=== PATIENT | female | born 1960 | race Caucasian/White ===

== ENCOUNTER 2025-01-09 15:34 | Emergency (ER) | payer BC, OTHER ==
[~2025-01-09] VITALS: Ht 160 cm; Wt 52.2 kg
[~2025-01-09 15:34] MED LIST: CALCIUM; CITALOPRAM HBR20 MG PO; IMITREX100 MG PO; MULTI-VITAMIN1 EACH PO
[2025-01-09 17:25] LABS: BASOPHILS % 0.2 % (0.0-1.0); EOSINOPHILS % 0.0 % (0.0-6.0); LYMPHOCYTES % 2.4 % (18.0-39.1); MONOCYTES % 4.1 % (4.4-11.3); NEUTROPHILS % 92.7 % (38.7-80.0); RED CELL DISTRIBUTION WIDTH 12.0 % (11.7-14.4)
[2025-01-09 17:34] LABS: INR 0.91
[2025-01-09 17:38] LABS: EST GLOMERULAR FILTRATION RATE 90.0 ML/MIN (>=60)
[2025-01-09] MEDS: ONDANSETRON HCL INJ 2MG/ML 2ML 2 MG/ML VIAL IV STA (17:45)
[2025-01-09] MEDS: SODIUM CHLORIDE 0.9% 1000ML 1,000 ML IV STA (17:45)
[2025-01-09 19:28] LABS: LEUKOCYTE ESTERASE ,URINE NEGATIVE (NEGATIVE); PROTEIN,URINE DIPSTICK 1+ (NEGATIVE); URINE UROBILINOGEN 0.2 mg/dL (0.2 - 1)
[2025-01-09] MEDS: SODIUM CHLORIDE 0.9% 1000ML 1,000 ML IV ONE (19:39)
[2025-01-09] MEDS: MECLIZINE HCL 12.5 MG TAB PO ONE (19:42)
[2025-01-09] MEDS: ACETAMIN/BUTALBITAL/CAFFEINE TAB PO ONE (19:42)
[2025-01-09] MEDS: DIPHENHYDRAMINE HCL INJ 50 MG/ML VIAL IV ONE (19:46)
[2025-01-09] MEDS: METOCLOPRAMIDE HCL 10 MG/2ML VIAL IV ONE (19:46)
[2025-01-09 19:49] VITALS: PULSE 78; RESP 20; TEMP 98.5; O2SAT 100
[2025-01-09] MEDS ORDERED: ONDANSETRON ODT4 MG SL (21:12)
[2025-01-09 21:27] VITALS: BP 134/78; PULSE 70; RESP 13; TEMP 97.5
== END 2025-01-09 21:30 | disposition home or self-care (01) ==
LOC: ER 18:06
DX: R11.2 Nausea with vomiting, unspecified (principal); G43.909 Migraine, unspecified, not intractable, without status migrainosus; F32.A Depression, unspecified
CPT/HCPCS: 36415; 70450; 71045; 80053; 81001; 82550; 83605; 83690; 83735; 84484; 85025; 85610; 85730; 87040; 87086; 93005; 99284; J1200; J2405; J2470; J2543; J2765; J7030; J8597